=== PATIENT | male | born 1990 | race Caucasian/White ===

== ENCOUNTER → 2022-06-17 | Outpatient (CLI) | payer OTHER ==
--- NOTE | 2022-06-17 17:21 | XR ---
EXAMINATION TYPE: XR tibia fibula LT DATE OF EXAM: 06/17/2022 COMPARISON: NONE HISTORY: Leg pain TECHNIQUE: 2 view FINDINGS: Tibia and fibula appear intact. I see no fracture nor dislocation. Knee joint and ankle star nt are intact. IMPRESSION: Negative left tibia and fibula exam
== END | disposition home or self-care (01) ==
LOC: RADXRMAIN 16:58
PROVIDERS: ATTEND Emergency Medicine
DX: S80.12XA Contusion of left lower leg, initial encounter (principal); S80.812A Abrasion, left lower leg, initial encounter